=== PATIENT | female | born 1995 | race American Indian/Alaskan Native ===

== ENCOUNTER 2017-10-06 12:48 | Emergency (ER) | payer SELFPAY ==
[2017-10-06 13:00] VITALS: BP 136/75
[2017-10-06] MEDS ORDERED: Mupirocin Oint 22 GM Tube TOP ONE (13:40)
--- NOTE | 2017-10-06 13:53 | EDM.PDOC ---
ED HPI GENERAL MEDICAL PROBLEM - General Chief Complaint: Lower Extremity Injury/Pain Stated Complaint: INFECTION ON KNEE NO PHONE Right Knee Pain Score (Numeric/FACES): 8 - Related Data Allergies Allergy/AdvReac Type Severity Reaction Status Date / Time No Known Allergies Allergy Verified 10/31/15 00:38 Home Meds: Home Meds . [No Known Home Meds] 06/10/14 [History] Past Medical History - Past Health History Medical/Surgical History: Denies Medical/Surgical History Social & Family History - Family History Family Medical History: Noncontributory - Tobacco Use Smoking Status *Q: Current Every Day Smoker Years of Tobacco use: 6 Packs/Tins Daily: 1 Second Hand Smoke Exposure: Yes - Caffeine Use Caffeine Use: Reports: Coffee, Soda - Alcohol Use Days Per Week of Alcohol Use: 3 Number of Drinks Per Day: 6 Total Drinks Per Week: 18 - Recreational Drug Use Recreational Drug Use: No Drug Use in Last 12 Months: Yes Recreational Drug Type: Reports: Amphetamines (Speed), Cocaine Course - Vital Signs Last Recorded V/S: Last Vital Signs Temp 95.9 F 10/06/17 12:58 Pulse 82 10/06/17 12:58 Resp 16 10/06/17 12:58 BP 136/75 10/06/17 12:58 Pulse Ox 100 10/06/17 12:58 - Orders/Labs/Meds Meds: Medications Discontinued Medications Generic Name Dose Route Start Last Admin Trade Name Babar PRN Reason Stop Dose Admin Mupirocin 1 gm 10/06/17 13:40 10/06/17 13:50 Bactroban Oint TOP 10/06/17 13:41 1 gm ONETIME ONE Administration Departure - Departure Time of Disposition: 13:50 Disposition: Home, Self-Care 01 Condition: Fair Clinical Impression: Open knee wound Qualifiers: Encounter type: initial encounter Laterality: right Qualified Code(s): S81.001A - Unspecified open wound, right knee, initial encounter - Discharge Information Instructions: Wound Infection, [id number] Forms: ED Department Discharge Additional Instructions: Cover area with bactroban 3-4 times daily for 2-3 days. Then leave open to air to heal If redness increases or you develop a fever return to ER Follow up with your primary care facility
--- NOTE | 2017-10-06 14:43 | EDM.PDOC ---
Scribed by Marisa Sanchez 10/06/17 7507 for Andreia Toney NP ED HPI GENERAL MEDICAL PROBLEM - General Chief Complaint: Lower Extremity Injury/Pain Stated Complaint: INFECTION ON KNEE NO PHONE Time Seen by Provider: 10/06/17 13:36 Source of Information: Reports: Patient, RN, RN Notes Reviewed History Limitations: Reports: No Limitations - History of Present Illness INITIAL COMMENTS - FREE TEXT/NARRATIVE: Patient presents to ER with complaint of infection in the right knee. She states she fell on the gravel 3 days ago. It began draining pus this morning. Patient states it has been red since it happened. No fever, chills, nausea, vomiting or diarrhea. Onset: Gradual Duration: Getting Worse Location: Reports: Lower Extremity, Right Quality: Reports: Ache Severity: Mild Improves with: Reports: None Worsens with: Reports: None Associated Symptoms: Reports: No Other Symptoms Right Knee Pain Score (Numeric/FACES): 8 - Related Data Allergies Allergy/AdvReac Type Severity Reaction Status Date / Time No Known Allergies Allergy Verified 10/31/15 00:38 Home Meds: Home Meds . [No Known Home Meds] 06/10/14 [History] Past Medical History - Past Health History Medical/Surgical History: Denies Medical/Surgical History Social & Family History - Family History Family Medical History: Noncontributory - Tobacco Use Smoking Status *Q: Current Every Day Smoker Years of Tobacco use: 6 Packs/Tins Daily: 1 Second Hand Smoke Exposure: Yes - Caffeine Use Caffeine Use: Reports: Coffee, Soda - Alcohol Use Days Per Week of Alcohol Use: 3 Number of Drinks Per Day: 6 Total Drinks Per Week: 18 - Recreational Drug Use Recreational Drug Use: No Drug Use in Last 12 Months: Yes Recreational Drug Type: Reports: Amphetamines (Speed), Cocaine Review of Systems - Review of Systems Review Of Systems: ROS reveals no pertinent complaints other than HPI. ED EXAM, GENERAL - Physical Exam Exam: See Below Exam Limited By: No Limitations General Appearance: Alert, WD/WN, No Apparent Distress Eye Exam: Bilateral Eye: Normal Inspection Ears: Normal External Exam, Normal Canal, Hearing Grossly Normal, Normal TMs Nose: Normal Inspection, Normal Mucosa, No Blood Throat/Mouth: Normal Inspection, Normal Lips, Normal Teeth, Normal Gums, Normal Oropharynx, Normal Voice, No Airway Compromise Head: Atraumatic, Normocephalic Neck: Normal Inspection, Supple, Non-Tender, Full Range of Motion Respiratory/Chest: No Respiratory Distress, Lungs Clear, Normal Breath Sounds, No Accessory Muscle Use, Chest Non-Tender Cardiovascular: Normal Peripheral Pulses, Regular Rate, Rhythm, No Edema, No Gallop, No JVD, No Murmur, No Rub GI/Abdominal: Normal Bowel Sounds, Soft, Non-Tender, No Organomegaly, No Distention, No Abnormal Bruit, No Mass (Female) Exam: Deferred Rectal (Female) Exam: Deferred Back Exam: Normal Inspection, Full Range of Motion, NT Extremities: Normal Inspection, Normal Range of Motion, Non-Tender, Normal Capillary Refill, No Pedal Edema Neurological: Alert, Oriented, CN II-XII Intact, Normal Cognition, Normal Gait, Normal Reflexes, No Motor/Sensory Deficits Psychiatric: Anxious Skin Exam: Other (right knee wound--draining green/white pus. ) Lymphatic: No Adenopathy Course - Vital Signs Last Recorded V/S: Last Vital Signs Temp 95.9 F 10/06/17 12:58 Pulse 82 10/06/17 12:58 Resp 16 10/06/17 12:58 BP 136/75 10/06/17 12:58 Pulse Ox 100 10/06/17 12:58 - Orders/Labs/Meds Meds: Medications Discontinued Medications Generic Name Dose Route Start Last Admin Trade Name Babar PRN Reason Stop Dose Admin Mupirocin 1 gm 10/06/17 13:40 10/06/17 13:50 Bactroban Oint TOP 10/06/17 13:41 1 gm ONETIME ONE Administration Departure - Departure Time of Disposition: 14:42 Disposition: Home, Self-Care 01 Clinical Impression: Open knee wound Qualifiers: Encounter type: initial encounter Laterality: right Qualified Code(s): S81.001A - Unspecified open wound, right knee, initial encounter - Discharge Information Instructions: Wound Infection, [id number] Referrals: PCP,Not In Area [Primary Care Provider] - Forms: ED Department Discharge Additional Instructions: Cover area with bactroban 3-4 times daily for 2-3 days. Then leave open to air to heal If redness increases or you develop a fever return to ER Follow up with your primary care facility I have read and agree with the documentation that has been completed regarding this visit. By signing this record, I attest that the documentation was completed in my physical presence and is an accurate record of the encounter.
== END 2017-10-06 14:02 | disposition home or self-care (01) ==
LOC: DL.ED 12:48
DX: S81.001A Unspecified open wound, right knee, initial encounter (principal); F17.210 Nicotine dependence, cigarettes, uncomplicated; W17.89XA Other fall from one level to another, initial encounter
CPT/HCPCS: 87070; 99283; A9270; 87077; 87186